=== PATIENT | female | born 1965 | race African-American/Black ===

== ENCOUNTER 2016-08-26 08:04 | Inpatient (IN) ==
[2016-08-26] MEDS ORDERED: ENOXAPARIN 80 MG/0.8 ML SYRINGE SUBCUT STA (08:46)
[2016-08-26 08:58] LABS: Basophils # 0.1 10*3/uL (0.0-0.2); Basophils % 0.9 % (0.0-0.8); Eosinophils # 0.1 10*3/uL (0.0-0.87); Eosinophils % 1.2 % (0.00-10.9); Hemoglobin 13.4 GM/DL (12.0-16.0); Immature Granulocytes % 0.3 %; Immature Granulocytes Absolute 0.02 #; Lymphocytes # 2.1 10*3/uL (1.4-4.0); Lymphocytes % 29.5 % (21.3-54.2); Mean Corpuscular HGB Conc 35.3 GM/DL (32-36); Mean Corpuscular Hemoglobin 28 PG (27-34); Mean Corpuscular Volume 80.2 FL (87-102); Mean Platelet Volume 9.6 FL (9.6-12.0); Monocytes # 0.6 10*3/uL (0.11-0.8); Monocytes % 8.3 % (1.7-12.7); Neutrophils # 4.2 10*3/uL (1.4-7.4); Neutrophils % 59.8 % (38.7-73.9); Platelet Count 309 T/CUMM (130-400); Red Blood Count 4.74 MC/CUMM (3.8-5.5); Red Cell Distribution Width 13.2 % (9.3-17.3)
[2016-08-26] MEDS ORDERED: ENOXAPARIN 80 MG/0.8 ML SYRINGE SUBCUT ONE (09:01)
[2016-08-26] MEDS ORDERED: MORPHINE 2 MG/1 ML SYRINGE IV STA (09:15)
[2016-08-26] MEDS ORDERED: ONDANSETRON 4 MG/2 ML VIAL IV STA (09:15)
--- NOTE | 2016-08-26 09:15 | Emergency Department Note ---
Rivera Breaux Brittany, am scribing for, and in the presence of, Lucila Alvarado DO 09:03. IChristiano Debra, DO, personally performed the services described in this documentation, ascribed by Jennifer Stafford in my presence, and it is both accurate and complete 915 . Arrival - Arrival Chief Complaint: Chest Pain Stated Complaint: chest pain ED Nursing Triage Note: c/o having chest pain since 0600 this am., patient received 325 asa en route., 1 nitro - patient has no pain at current time., denies coughing., Mode of Arrival: Stretcher Limitations: No Limitations Source: Patient, RN Notes Reviewed Time Seen by Provider: 08/26/16 08:45 - History of Present Illness HPI Narrative: Patient is a 50 y/o black female presenting to the ED by EMS with c/o chest pain that began 2 hours ago. Patient reports that she woke up out of her sleep around 0600 this morning with chest pain. She states she tried repositioning herself on her back to alleviate the pain, but pain persisted. She then got out of bed and went to sit on the couch and had some relief. Upon relief of pain she then went to make her some coffee due to having a uatsdin program to attend later today. When she got into the kitchen pain onset once again, so severe that she became nauseated. She rates pain in that moment a 10/10. EMS were called to her residency for transport here. Patient en route to the ED received 325 mg ASA and a Nitroglycerin. At current she has no chest pain. She notes that about a month ago she had some chest pain that made her arm go numb and since this occurrence she has been seeing Dr. 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 She has had a stress test performed that was normal. She has not had a Cardiac Catheterization. Patient in room has a blood pressure of 98/66 mmHg. She has a history significant for HTN, Graves Disease, Spinal Stenosis. She denies use of recreational drugs. No other complaint/pain. Date of Last Menstrual Period: hyst Allergies/Adverse Reactions: Allergies Allergy/AdvReac Type Severity Reaction Status Date / Time carisoprodol [From Soma] AdvReac Nausea Verified 01/19/15 11:49 Home Medications: Home Medications Medication Instructions Recorded Confirmed Type Cyclobenzaprine [Flexeril] 5 mg PO BEDTIME PRN 01/19/15 01/19/15 History HYDROcodone/ACETAMIN 10-325 [[place] 1 tablet PO Q12H 01/19/15 01/19/15 History 10-325] Levothyroxine Tab [Synthroid Tab] 112 mcg PO DAILY@0700 01/19/15 01/19/15 History Meloxicam [Mobic] 7.5 mg PO DAILY 01/19/15 01/19/15 History Metoprolol Tartrate 25 mg PO DAILY 01/19/15 01/19/15 History Promethazine/Phenyleph/Codeine 2 teaspoon PO Q4-6H PRN 01/19/15 01/19/15 History [Promethazine VC/Codeine Syrup] Zolpidem Tartrate [Zolpidem 12.5 mg PO BEDTIME 01/19/15 01/19/15 History Tartrate ER] Review of System - Review of System 12 point system: reviewed and no additional remarkable complaints except as stated - Review of System Cardiovascular: Present: chest pain Gastrointestinal: Present: nausea Psychiatric: Present: anxiety Medical,Surgical,& Family Hx - Medical History Cardio: History of: Hypertension Endocrine: History of: Thyroid Disorder (Grave's disease) Musculoskeletal: History of: Back/Neck Problems (chronic neck pain), Musculoskeletal Problems (spinal stenosis) - Surgical History Reproductive Surgeries: Surgical HX of;: Hysterectomy - Social History Smoking Status: Smoker, status unknown Frequency of Alcohol Use: Occasionally Type of Drug Use: None Exam Vital Signs: Vital Signs Pulse Rate 81 08/26/16 08:20 Respiratory Rate 16 08/26/16 08:20 Blood Pressure 123/69 08/26/16 08:20 O2 Sat by Pulse Oximetry 100 08/26/16 08:20 - General General appearance: alert, in no apparent distress - Head Head exam: Present: atraumatic, normocephalic, normal inspection - Eye Eye exam: Present: normal appearance, PERRL, EOMI - ENT ENT exam: Present: normal exam, normal oropharynx, mucous membranes moist - Neck Neck exam: Present: normal inspection, full ROM, trachea midline - Chest Chest inspection: Present: symmetric chest wall rise, tenderness (mildly tender to palpation) - Respiratory Respiratory exam: Present: normal lung sounds bilaterally. Absent: rales, rhonchi, wheezes - Cardiovascular Cardiovascular exam: Present: regular rate, normal rhythm, normal heart sounds. Absent: murmur, rubs, gallop - Abdominal Exam Abdominal exam: Present: soft, normal bowel sounds. Absent: distention, tenderness - Extremities Exam Extremities exam: Present: normal inspection. Absent: pedal edema - Back Exam Back exam: Present: normal inspection - Neurological Exam Neurological exam: Present: alert, oriented X3, CN II-XII intact. Absent: motor sensory deficit - Psychiatric Psychiatric exam: Present: normal affect, normal mood - Skin Skin exam: Present: warm, dry, intact, normal color Course Course Narrative: spoke with DR Deleon who will admit pt Results - Labs CBC & BMP: 08/26/16 08:32 08/26/16 08:32 Lab Results: I have reviewed the patients labs Labs: Laboratory Tests 08/26/16 08:32 WBC 7.0 RBC 4.74 Hgb 13.4 Hct 38.0 MCV 80.2 L Plt Count 309 Baso % (Auto) 0.9 H - EKG EKG results: interpreted by ALEC, not changed from: (non specific t wave) - Diagnostic Findings Procedure: Chest x-ray: report reviewed by me (no acute abnormality) Disposition Clinical Impression: Chest pain Case discussed with: patient, patient's family Disposition: Still a Patient Condition: Stable Instructions: Chest Pain (ED) Time of Disposition: 09:38
[2016-08-26] MEDS ORDERED: MORPHINE 2 MG/1 ML SYRINGE ONE (09:16)
[2016-08-26] MEDS ORDERED: ONDANSETRON 4 MG/2 ML VIAL ONE (09:16)
[2016-08-26 09:33] LABS: Alanine Aminotransferase 30 U/L (13-56); Albumin 3.8 G/DL (3.4-5.0); Alkaline Phosphatase 77 U/L (45-117); Aspartate Amino Transferase 28 U/L (0-37); Bilirubin,Total < 0.39 MG/DL (0.2-1.0); Blood Urea Nitrogen 17 MG/DL (7-18); Calcium 8.9 MG/DL (8.5-10.1); Glucose 100 MG/DL (74-106); Osmolality,Calculated 280.4 MOS/KG (273-304); Potassium 2.8 MMOL/L (3.5-5.1); Sodium 140 MMOL/L (136-145); Total Protein 6.7 G/DL (6.4-8.3); Troponin I Only < 0.015 NG/ML (0.00-0.045)
--- NOTE | 2016-08-26 09:36 | XRay Report ---
History: Chest pain. History of hypertension Date: 08/26/2016 Study: Chest x-ray AP portable Comparison exam: No previous chest x-ray currently available for comparison The cardiomediastinal silhouette and pulmonary vasculature are unremarkable. There is platelike scar or subsegmental atelectasis of the lung bases. The lungs and pleural spaces are otherwise clear. There is no acute osseous abnormality. Impression: Platelike scar or subsegmental atelectasis of the lung bases. PROCEDURE INTERPRETED AT [facility] DEPARTMENT OF RADIOLOGY Final Report Signed by: Dr. Maylin Angel
[2016-08-26] MEDS ORDERED: MORPHINE 2 MG/1 ML SYRINGE IV PRN (09:41)
[2016-08-26] MEDS ORDERED: MAGNESIUM SULF RIDER 4 GM in PREMIX 1 EACH IV PRN (09:41)
[2016-08-26] MEDS ORDERED: ONDANSETRON 4 MG/2 ML VIAL IV PRN (09:41)
[2016-08-26] MEDS ORDERED: MAGNESIUM SULF RIDER 2 GM in PREMIX 1 EACH IV PRN (09:41)
[2016-08-26 10:20] LABS: Troponin I Only < 0.015 NG/ML (0.00-0.045)
[2016-08-26] MEDS: SODIUM CHLORIDE 0.9% 1,000 ML IV SCH ×2 (11:50→20:30)
--- NOTE | 2016-08-26 12:43 | EKG Report ---
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
--- NOTE | 2016-08-26 13:25 | Cardiology History & Physical ---
Assessment and Plan (1) Chest pain Status: Acute Assessment and plan: Atypical for cardiac. Recent normal SPECT scan. Current Visit: Yes (2) Hypokalemia Status: Acute Assessment and plan: Replace and recheck potassium. Current Visit: Yes (3) Tobacco abuse Status: Chronic Assessment and plan: Needs smoking cessation. Current Visit: Yes (4) Dyslipidemia Status: Chronic Assessment and plan: Continue medications. Current Visit: Yes (5) Hypertension Status: Chronic Assessment and plan: Stable at this time. Current Visit: Yes (6) Cervical spine disease Status: Chronic Assessment and plan: May be source of some of her pain. Current Visit: Yes History of Present Illness Chief complaint: chest pain History of present illness: Ms. Gonzalez is a 50 year old female who presented to the emergency room today via EMS. She states she woke this morning with chest pain that seemed to increase. This resolved after a while but nonspecified. She made coffee and is on had a second episode of the same type of chest pain felt nauseous and weak. This persisted has family called EMS. This again resolved and came back in the abdomen was then again emergency room. She is having no chest pain this time. She describes it as a tightness felt. Shortness of breath with it it one tablet nauseous. Deep breath coughing did not make it worse or better. She did have difficulty getting her breath or trying to get a deep breath. She notes a wrapping arms around her and anterior/from her chest and pushing him made it better. Based on the history her ECG in the emergency room was unremarkable cardiac enzymes are normal. I'm unable to find the ECG from the emergency room. A repeat ECG on the floor though reveals nonspecific anterior T -wave abnormalities. On comparison to ECG from Dr. Rahman's office this was previously present. We have a cardiac perfusion study carried out Dr. Rahman's office which was done because patient having left arm pain and was interpreted as having a normal stress ECG and having a normal cardiac perfusion study with ejection fraction 61 %. She's had no prior cardiac history or cardiac testing with the exception of her recent stress test. She is a smoker. There is no family history of heart disease. She states her lipids are elevated recent finding. She been started on atorvastatin. Home Medications Medication Instructions Recorded Confirmed Type HYDROcodone/ACETAMIN 10-325 [[place] 1 tablet PO Q12H 01/19/15 08/26/16 History 10-325] Zolpidem Tartrate [Zolpidem 12.5 mg PO BEDTIME 01/19/15 08/26/16 History Tartrate ER] Amlodipine Besylate [Amlodipine 2.5 - 5 mg PO QAM 08/26/16 08/26/16 History Besylate] Chlorthalidone [Chlorthalidone] 25 mg PO QAM 08/26/16 08/26/16 History Cyclobenzaprine [Flexeril] 10 mg PO BEDTIME PRN 08/26/16 08/26/16 History Fluoxetine HCl [Fluoxetine HCl] 20 mg PO QAM 08/26/16 08/26/16 History LORazepam [Lorazepam] 0.5 - 1 mg PO BID PRN 08/26/16 08/26/16 History Levothyroxine Sodium [Synthroid] 100 mcg PO QAM 08/26/16 08/26/16 History Metoprolol Succinate Xl [Toprol Xl] 25 mg PO QAM 08/26/16 08/26/16 History Allergies Allergy/AdvReac Type Severity Reaction Status Date / Time carisoprodol [From Soma] AdvReac Nausea Verified 01/19/15 11:49 Review of systems: Constitutional: Denies anorexia, chills, fatigue, fever, frequent falls, night sweats, weight gain, weight loss Eyes: Denies visual changes or loss of vision Ears: Denies decreased hearing, vertigo Nose, mouth and throat: Denies dysphagia, epistaxis, headaches, neck pain, tongue swelling, Neck: Denies thyromegaly or masses. She has a history of hypothyroidism as well as cervical spine stenosis which she sees the pain clinic. Cardiovascular: as per HPI Respiratory: Denies cough, dyspnea, hemoptysis, dyspnea on exertion, wheezing, snoring Gastrointestinal: Denies abdominal pain, constipation, dyspepsia, dysphagia, hematemesis, hematochezia, melena, nausea, vomiting Genitourinary: Denies dysuria, hematuria, nocturia Musculoskeletal: Denies arthralgias, joint swelling, muscle weakness, myalgias Neurological: denies abnormal gait, abnormal speech, confusion, convulsions, frequent falls, headaches, memory loss, syncope Psychiatric: Denies anxiety, confusion, depression Endocrine: Denies cold intolerance, fatigue, heat intolerance Hematologic/Lymphatic: Denies easy bleeding, easy bruising Dermatologic: Denies Rash, itching, shingles Medical,Surgical,& Family Hx - Medical History Cardio: History of: Hypertension Neurology: History of: Migraine Endocrine: History of: Dyslipidemia, Thyroid Disorder (Grave's disease) Gastrointestinal: History of: GERD Musculoskeletal: History of: Back/Neck Problems (chronic neck pain), Musculoskeletal Problems (spinal stenosis) - Surgical History Abdominal Surgeries: Surgical HX of: EGD Reproductive Surgeries: Surgical HX of;: Hysterectomy - Family History Family History: Reports;: Family Diabetes, Family Hypertension - Social History Smoking Status: Current every day smoker Have you smoked in the last 12 months: Yes Frequency of Alcohol Use: Occasionally Type of Drug Use: None Cardiology Physical Exam - Constitutional Vitals: Vital Signs Temp Pulse Resp BP Pulse Ox 97.6 F 72 20 107/70 96 08/26/16 12:46 08/26/16 12:46 08/26/16 12:46 08/26/16 12:46 08/26/16 12:46 Intake and Output 08/25/16 08/26/16 08/26/16 23:59 07:59 15:59 Other: Weight 80.739 kg Patient Weight 08/26/16 23:59 Weight 80.739 kg Exam: General appearance: normal weight, no acute distress Head exam: normal inspection, atraumatic Eye exam: Pupils are equal and reactive. EOMI. There is no trauma. Ear exam: Anatomically normal. Normal auditory acuity to conversation. Oral exam: No significant oral lesions. Neck exam: normal inspection no JVD. No carotid bruit. Trachea is in midline. Respiratory exam: clear to auscultation bilaterally posteriorly and anteriorly with good air movement. No rales, rhonchi or wheezes. Cardiovascular exam: regular rate and rhythm, no murmur or gallop or rub. No precordial lift. No bruits over the major arteries. Chest wall/torso: Anatomically normal. No deformity but with diffuse two- vessel palpation across the anterior chestand the left upper chest just below the left clavicle. Peripheral Pulses: 2+ throughout. GI/Abdominal exam: normal bowel sounds, soft and nontender, no abdominal bruits or pulsatile masses. Musculoskeletal/Extremities exam: normal inspection without edema or cyanosis. No deformities or trauma. Neurological exam: alert, oriented X3. There is no gross neurologic deficits. Psychiatric exam: normal affect, normal mood. Cognitive function is grossly intact. Skin exam: normal color, warm. No rashes or other skin lesions. Result/EKG - Labs CBC & BMP: 08/26/16 08:32 08/26/16 08:32 Lab Results: I have reviewed the past 24 hour labs (potassium is low.) - Impressions Impressions: ECG with sinus rhythm with nonspecific anterior T-wave abnormalities that looks similar to her ECG from the office.
[2016-08-26 13:27] LABS: Troponin I Only < 0.015 NG/ML (0.00-0.045)
[2016-08-26] MEDS ORDERED: LORazepam 1 MG TABLET PO PRN (14:48)
[2016-08-26] MEDS ORDERED: CYCLOBENZAPRINE 10 MG TABLET PO PRN (14:48)
[2016-08-26] MEDS: POTASSIUM CHLORIDE 20 MEQ TABLET PO SCH ×2 (14:57→20:29)
[2016-08-26 16:19] LABS: Troponin I Only < 0.015 NG/ML (0.00-0.045)
[2016-08-26] MEDS: ZALEPLON 5 MG CAPSULE PO SCH (20:28)
[2016-08-27] MEDS: SODIUM CHLORIDE 0.9% 1,000 ML IV SCH ×4 (02:30→21:15)
[2016-08-27 05:48] LABS: Calcium 8.6 MG/DL (8.5-10.1); Magnesium 2.1 MG/DL (1.8-2.4); Osmolality,Calculated 287.8 MOS/KG (273-304); Potassium 3.9 MMOL/L (3.5-5.1)
[2016-08-27 06:00] LABS: Risk Ratio 3.8; VLDL CHOLESTEROL 18.6 MG/DL
--- NOTE | 2016-08-27 07:43 | EKG Report ---
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
[2016-08-27] MEDS: POTASSIUM CHLORIDE 20 MEQ TABLET PO SCH ×2 (08:58→21:33)
[2016-08-27] MEDS ORDERED: METOPROLOL SUCCINATE XL 25 MG TABLET PO SCH (09:00)
[2016-08-27] MEDS ORDERED: FLUoxetine 10 MG CAPSULE PO SCH (09:00)
[2016-08-27] MEDS ORDERED: CHLORTHALIDONE 25 MG TABLET PO SCH (09:00)
[2016-08-27] MEDS ORDERED: amLODIPine 5 MG TABLET PO SCH (09:00)
[2016-08-27] MEDS ORDERED: LEVOTHYROXINE 100 MCG TABLET PO SCH (09:00)
--- NOTE | 2016-08-27 12:53 | EKG Report ---
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
[2016-08-27] MEDS ORDERED: ACETAMINOPHEN 325 MG TABLET PO PRN (15:05)
[2016-08-27] MEDS ORDERED: IBUPROFEN 100 MG/5 ML UDCUP ONE (17:10)
--- NOTE | 2016-08-27 19:36 | CT Report ---
History: Chest pain and shortness of breath Date: 08/27/2016 Study: CT chest with IV contrast with pulmonary embolus technique Comparison exam: No previous Spiral CT sections were obtained through the lungs following the IV administration of 80 mL of Omnipaque 350 without immediate complication. Multiplanar reconstruction images are also evaluated. The CT exam was performed using one or more of the following dose reduction techniques: Automated exposure control, adjustment of the mA and/or kV according to patient size, or use of iterative reconstruction technique. There is no discrete filling defect within the pulmonary arterial tree to suggest acute pulmonary embolic disease. There is no thoracic aortic aneurysm or dissection. There is no gross pleural or pericardial effusion. There are mild emphysematous changes in the upper lung zones. There is mild platelike subsegmental atelectasis in the lung bases. There is no mediastinal lymphadenopathy by short axis diameter criteria. There is no mediastinal mass. There are some small hepatic cysts noted within the partially visualized liver. Impression: No evidence of acute pulmonary embolic disease. Mild platelike subsegmental atelectasis in the lung bases. PROCEDURE INTERPRETED AT [facility] DEPARTMENT OF RADIOLOGY Final Report Signed by: Dr. Maylin Angel
--- NOTE | 2016-08-27 20:37 | Cardiology Progress Note ---
Allen Breaux Vanessa, RN, am scribing for, and in the presence of, Juanis Perez MD 20:37. Assessment and Plan - Time spent with patient Time spent with patient: Greater than 30 minutes (1) Chest pain Status: Acute Assessment and plan: Patient continues to have non-cardiac chest pain today in the left chest wall area and midsternal region. Chest discomfort reproducible during exam. Patient had normal SPECT scan at Dr. Jarvis's office on 07/16/16. We will rule out pulmonary embolism. We will have her ambulate and reevaluate her chest pain. Current Visit: Yes (2) Hypokalemia Status: Resolved Assessment and plan: Hypokalemia is improved today with K+ of 3.9. Continue K-Dur 20 meq PO BID. Monitor electrolytes. Current Visit: Yes (3) Cervical spine disease Status: Chronic Assessment and plan: Patient has been treated in the past by Dr. Oliver for cervical spine disease. Cervical pain may also be a source for her previous chest pain. Current Visit: Yes (4) Dyslipidemia Status: Chronic Assessment and plan: Patient recently prescribed atorvastatin. Reports she was recently instructed by [facility] to stop taking this after she called one afternoon and complained of moderate nausea and vomiting not long after beginning statin therapy. Current Visit: Yes (5) Hypertension Status: Chronic Assessment and plan: Blood pressure is well controlled. Continue current medication regimen. Current Visit: Yes (6) Tobacco abuse Status: Chronic Assessment and plan: Tobacco cessation counseling. Current Visit: Yes Cardiology - PN: Subj Interval history: PRIMARY TABLE OPERATOR: DR. BETTY JARVIS Ms. Gonzalez is a 50 year old black female with PMHx of HTN, migraine, HLD, Grave 's disease, GERD, cervical spinal stenosis with chronic neck pain, and tobacco abuse. She is now admitted to the hospital after experiencing some chest pain after waking yesterday morning, nausea and chest discomfort later that morning. Patient also experienced some shortness of breath. Patient reported she had relief of chest discomforts with repositioning/stretching of her arms, but she was unable to take in a deep breath. Cardiac workup thus far has been unrevealing for acute coronary syndrome or other cardiac issue. She was recently evaluated in Dr. Jarvis's office after c/o left arm pain, and she subsequently had SPECT perfusion scan which was normal, ejection fraction 61%. EKG with some nonspecific t-wave changes which are also seen on EKGs completed in Dr. Jarvis's office. Noted to be hypokalemic with potassium of 2.8 upon admission. PO supplement initiated, and K+ is improved to 3.9 today. Vitals have been stable overnight. Tele monitoring reveals sinus rhythm without overt ectopy or sustained arrhythmia. Patient seen and examined in room on telemetry. She is sitting up in bedside chair watching TV with no acute distress noted. Overall, her chest discomfort has dissipated and is not occurring. She was very short of breath at the time of the initial chest discomfort. She was also having some neck and back spasms at the same time. Exam (Progress Note) - Constitutional Vitals: Period Temp Pulse Resp BP Sys/Ramires Pulse Ox Last 24 Hr 96.7 F-98.6 F 62-85 16-20 105-113/66-77 93-98 Exam: General appearance: no acute distress, overweight Head exam: normal inspection. Absent: laceration, contusion, hematoma. Eye exam: Pupils are equal and reactive. EOMI. There is no trauma. Ear exam: Anatomically normal. Oral exam: No significant oral lesions. Neck exam: normal inspection. Absent: JVD, carotid bruit, midline trachea, tenderness.. Respiratory exam: Present: clear to auscultation. No rales, rhonchi or wheezes. Cardiovascular exam: regular rate and rhythm, no murmur or gallop or rub. No precordial lift, tachycardia, bradycardia, irregular rhythm Chest wall/torso: Anatomically normal. Left chest wall and midsternal chest tenderness with palpation during exam. GI/Abdominal exam: normal bowel sounds, soft and nontender, no abdominal bruits or pulsatile masses. Musculoskeletal/Extremities exam: Present: Full ROM, normal capillary refill, minimal trace pretibial edema. Absent: calf tenderness Neurological exam: alert, oriented X3, grossly intact without tremor appreciated. Psychiatric exam: normal affect, normal mood. Absent: agitation, anxious, depressed. Skin exam: normal color, warm, dry. No rashes or suspicious skin lesions. Result/EKG - Labs CBC & BMP: 08/26/16 08:32 08/27/16 04:04 Lab Results: I have reviewed the past 24 hour labs Labs: Laboratory Results - last 24 hr 08/26/16 08/27/16 08/27/16 15:38 04:04 04:04 Sodium 144 Potassium 3.9 Chloride 106 Carbon Dioxide 32 Anion Gap 9.9 BUN 17 Creatinine 0.70 GFR Calculation 127 BUN/Creatinine Ratio 24.00 H Glucose 102 Calculated Osmolality 287.8 Calcium 8.6 Magnesium 2.1 Total Creatine Kinase 127 CK-MB (CK-2) < 1.0 Troponin I < 0.015 Triglycerides 93 Cholesterol 205 H LDL Cholesterol 134.0 VLDL Cholesterol 18.6 HDL Cholesterol 54 Heart Disease Risk Ratio 3.80 - Diagnostic Findings Procedure: Chest x-ray: image reviewed by me, report reviewed by me - EKG EKG results: interpreted by me, no acute changes EKG shows: sinus rhythm Specialty Discharge - Follow Up or Referrals I, Juanis Perez MD, personally performed the services described in this documentation, ascribed by Tory Villa RN in my presence, and it is both accurate and complete .
--- NOTE | 2016-08-27 20:40 | Discharge Summary ---
Hospital Course - Hospital Course Hospital Course: The patient was admitted to the hospital with atypical chest pain and shortness of breath. She ruled out for myocardial infarction. She has recently undergone negative stress testing in the clinic. CT scan of the chest was performed which was negative for pulmonary embolism. She was significantly hypokalemic upon admission and this was replaced. Her symptoms resolved. She ambulated the christians[facility] several times without any recurrence of symptoms. She is being discharged home in stable condition and we have recommended that she follow-up with her primary care provider on to reevaluate her potassium. Diagnosis - Discharge Diagnosis (1) Chest pain Status: Acute (2) Hypokalemia Status: Resolved (3) Cervical spine disease Status: Chronic (4) Dyslipidemia Status: Chronic (5) Hypertension Status: Chronic (6) Tobacco abuse Status: Chronic Specialty Discharge - Follow Up or Referrals Discharge Plan - Discharge Data Disposition: Disch To Home/Self Care Condition at Discharge: Stable Discharge Diet: advance to your usual diet Activity: resume usual activities as tolerated Hygiene: no restrictions Driving: no restrictions - Discharge Medications New Potassium Chloride 10 meq PO DAILY #30 capsule Continue Zolpidem Tartrate [Zolpidem Tartrate ER] 12.5 mg PO BEDTIME HYDROcodone/ACETAMIN 10-325 [[place] 10-325] 1 tablet PO Q12H Cyclobenzaprine [Flexeril] 10 mg PO BEDTIME PRN PRN Reason: muscle spasms Metoprolol Succinate Xl [Toprol Xl] 25 mg PO QAM Levothyroxine Sodium [Synthroid] 100 mcg PO QAM Chlorthalidone 25 mg PO QAM Amlodipine Besylate 2.5 - 5 mg PO QAM LORazepam [Lorazepam] 0.5 - 1 mg PO BID PRN PRN Reason: Anxiety Fluoxetine HCl 20 mg PO QAM - Follow Up or Referral Follow Up: Maricel Mittal DO [Physician] - (Keep scheduled f/u for September) Dorothy Bettencourt [REFERRING DOCTOR/PRACTITIONER] - 1 Week (Check BMP to evaluate hyperkalemia on ) - Forms/Instructions Instructions: Chest Pain (ED) Exam - Constitutional Vitals: Period Temp Pulse Resp BP Sys/Ramires Pulse Ox Last 24 Hr 97.6 F-98.6 F 66-85 16-20 103-112/66-71 93-98 Exam: General appearance: no acute distress, overweight Head exam: normal inspection. Absent: laceration, contusion, hematoma. Eye exam: Pupils are equal and reactive. EOMI. There is no trauma. Ear exam: Anatomically normal. Oral exam: No significant oral lesions. Neck exam: normal inspection. Absent: JVD, carotid bruit, midline trachea, tenderness.. Respiratory exam: Present: clear to auscultation. No rales, rhonchi or wheezes. Cardiovascular exam: regular rate and rhythm, no murmur or gallop or rub. No precordial lift, tachycardia, bradycardia, irregular rhythm Chest wall/torso: Anatomically normal. Left chest wall and midsternal chest tenderness with palpation during exam. GI/Abdominal exam: normal bowel sounds, soft and nontender, no abdominal bruits or pulsatile masses. Musculoskeletal/Extremities exam: Present: Full ROM, normal capillary refill, minimal trace pretibial edema. Absent: calf tenderness Neurological exam: alert, oriented X3, grossly intact without tremor appreciated. Psychiatric exam: normal affect, normal mood. Absent: agitation, anxious, depressed. Skin exam: normal color, warm, dry. No rashes or suspicious skin lesions. Discharge Results Labs on day of discharge: Labs from last 24 hours 08/27/16 08/27/16 04:04 04:04 Sodium 144 Potassium 3.9 Chloride 106 Carbon Dioxide 32 Anion Gap 9.9 BUN 17 Creatinine 0.70 GFR Calculation 127 BUN/Creatinine Ratio 24.00 H Glucose 102 Calculated Osmolality 287.8 Calcium 8.6 Magnesium 2.1 Triglycerides 93 Cholesterol 205 H LDL Cholesterol 134.0 VLDL Cholesterol 18.6 HDL Cholesterol 54 Heart Disease Risk Ratio 3.80 DS: Provider Date of admission: 08/26/16 09:41 Primary care physician: . No PCP Dorothy Bettencourt Attending physician on admission: Taiwo Schultz Consults: 08/26/16 09:59 Consult to Pharmacy [CONS] Routine Reason for Pharmacy Consult: Adjust Meds Renal Funct Discharging clinician: Juanis Perez, Expected date of discharge: 08/27/16
[2016-08-27] MEDS: ZALEPLON 5 MG CAPSULE PO SCH (21:33)
[2016-08-27 22:00] VITALS: BP 117/78
--- NOTE | 2016-08-28 08:12 | EKG Report ---
Stationary ECG Study [facility] Test Date: 08/26/2016 12:46:29 PM Pat Name: KRISTEN LEE Department: Room: 277 Gender: F Rn Acls: : 1965 Requested by: Juan Jose Malhotra Order Number: [id number] Reading MD: SANDRO HENSLEY Intervals [place] Rate: 68 P: 75 [place]: 159 QRS: 73 QRSD: 98 T: 59 QT: 436 QTc: 454 Interpretive Statements SINUS RHYTHM T WAVE ABNORMALITY, POSSIBLE ANTERIOR ISCHEMIA Electronically Signed On 08-30-16 09:40:24 CDT by SANDRO HENSLEY [email or web address]
--- NOTE | 2016-08-28 09:21 | Physician Query Form ---
CLICK EDIT DOCUMENT TO SELECT QUERY ANSWER --> OK --> SIGN Cyndie Nuñez RN, CCDS Certified Clinical Shuttle Final Inspector W) [phone] (f) [phone] [email or web address]: Make your selection(s) from the choices in EACH section by typing an "x" and enter comments in the comment section. Please use your independent medical judgment in providing your response. This request does not imply that any particular answer is desired or expected. CLINICAL INDICATORS: (Providers should not edit this section) The medical record indicates that the patient was admitted with chest pain, history of cervical spine disease "Cervical pain may also be a source for her previous chest pain" and "significantly hypokalemic". After necessary workup, could you please state the underlying cause of the patient's chest pain, if determined. NON-CARDIAC ETIOLOGY: ( ) GERD ( ) Significantly hypokalemic ( ) Anterior chest wall pain ( ) Pleuritic pain ( ) Cervical spine disease ( ) Costochondritis ( ) Anxiety ( ) Musculoskeletal, please provide site: ( ) Troponin elevation due to non-cardiac cause, please specify: ( ) Other etiology, please specify: ( x) Clinically unable to determine COMMENTS: Use of terms such as suspected, likely, or probable (associated with a specific diagnosis that is being evaluated, monitored, or treated as if it exists) are acceptable and can be restated in the discharge summary if not ruled out. MTDD
== END 2016-08-27 22:06 | disposition home or self-care (01) | DRG 313 ==
LOC: EDUNIT# → EDBD → N.ED 08:04 → N.EDINP 09:41 → N.TELES 09:53
PROVIDERS: ADMIT Internal Medicine Cardiovascular Disease; ATTEND Internal Medicine Cardiovascular Disease